=== PATIENT | male | born 1945 | race African-American/Black ===

== ENCOUNTER 2017-02-16 11:20 | Inpatient (IN) | payer MEDICARE ==
[~2017-02-16] VITALS: Ht 175.3 cm; Wt 79.3 kg
[~2017-02-16 11:20] MED LIST: AMLO5TAB2 PO; ATOR20TA9 PO; PANT40TA5 PO; TRAM-47 PO
[2017-02-16] MEDS ORDERED: ALBUTEROL/IPRATROPIUM 2.5MG/0.5MG, 3 ML ONE ×2 (12:19→14:57)
[2017-02-16] MEDS ORDERED: DIPHENHYDRAMINE 50 MG/ML, 1ML IVPush ONE ×2 (12:30)
[2017-02-16] MEDS ORDERED: ALBUTEROL/IPRATROPIUM 2.5MG/0.5MG, 3 ML NPPB ONE (12:30)
[2017-02-16] MEDS ORDERED: methylPREDNISolone SOD SUCC 125 MG/2 ML IVPush ONE (12:30)
[2017-02-16] MEDS ORDERED: FAMOTIDINE 20 MG/2 ML IVPush ONE (12:30)
[2017-02-16] MEDS ORDERED: SODIUM CHLORIDE FLUSH 10ML SYR IVF ONE (12:30)
[2017-02-16] MEDS ORDERED: methylPREDNISolone SOD SUCC 125 MG/2 ML ONE (12:35)
[2017-02-16] MEDS ORDERED: DIPHENHYDRAMINE 50 MG/ML, 1ML ONE (12:35)
[2017-02-16] MEDS ORDERED: FAMOTIDINE 20 MG/2 ML ONE (12:35)
[2017-02-16 12:51] LABS: HEMATOCRIT 52.9 % (39.2-51.8); HEMOGLOBIN 17.5 g/dL (13.7-18.0); WHITE BLOOD COUNT 6.7 x10^3/uL (3.4-10)
[2017-02-16 13:02] LABS: ASPARTATE AMINO TRANSFERASE 17 U/L (15-37); BLOOD UREA NITROGEN 16 mg/dL (7-18)
[2017-02-16 13:10] LABS: IS PT STATUS REG ER OR PRE ER? YES
[2017-02-16] MEDS ORDERED: PRED5TAB PO (14:14)
[2017-02-16] MEDS ORDERED: ALBU90AE INH (14:14)
[2017-02-16] MEDS ORDERED: FLUT1DIS3 INH (14:14)
[2017-02-16] MEDS ORDERED: LABETALOL 5MG/ML, 20ML IVPush PRN (15:00)
[2017-02-16] MEDS ORDERED: POLYETHYLENE GLYCOL 17 GM PACKET PO PRN (15:00)
[2017-02-16] MEDS ORDERED: ACETAMINOPHEN 325 MG TABLET PO PRN (15:00)
[2017-02-16] MEDS ORDERED: BISACODYL 10 MG SUPP PR PRN (15:00)
[2017-02-16] MEDS ORDERED: morphine SULFATE 10 MG/ML, 1ML IVPush PRN (15:00)
[2017-02-16] MEDS ORDERED: ONDANSETRON 2MG/ML, 2ML IVPush PRN (15:00)
[2017-02-16] MEDS ORDERED: DOCUSATE 100 MG CAPSULE PO PRN (15:00)
[2017-02-16] MEDS ORDERED: HYDROcodone/APAP 5/325 TABLET PO PRN (15:00)
[2017-02-16] MEDS ORDERED: ALBUTEROL SULFATE 2.5 MG/3 ML NPPB PRN (16:00)
[2017-02-16] MEDS: methylPREDNISolone SOD SUCC 125 MG/2 ML IVPush SCH (17:59)
[2017-02-16] MEDS: ALBUTEROL/IPRATROPIUM 2.5MG/0.5MG, 3 ML NPPB SCH (19:35)
[2017-02-16 20:17] LABS: IS PT STATUS REG ER OR PRE ER? NO
[2017-02-16] MEDS: DIPHENHYDRAMINE 50 MG/ML, 1ML IVPush SCH (20:47)
[2017-02-16] MEDS: HEPARIN 5,000 UNITS/ML, 1ML SQ SCH (20:47)
[2017-02-16] MEDS: FAMOTIDINE 20 MG/2 ML IVPush SCH (20:48)
[2017-02-16] MEDS: SODIUM CHLORIDE FLUSH 10ML SYR IVF SCH (20:48)
[2017-02-17] MEDS: methylPREDNISolone SOD SUCC 125 MG/2 ML IVPush SCH ×2 (00:14→05:43)
[2017-02-17 00:58] LABS: IS PT STATUS REG ER OR PRE ER? NO
[2017-02-17 04:00] VITALS: BP 112/71
[2017-02-17 04:46] LABS: HEMATOCRIT 48.2 % (39.2-51.8); HEMOGLOBIN 16.1 g/dL (13.7-18.0); WHITE BLOOD COUNT 6.8 x10^3/uL (3.4-10)
[2017-02-17 04:56] LABS: BLOOD UREA NITROGEN 16 mg/dL (7-18)
[2017-02-17] MEDS: HEPARIN 5,000 UNITS/ML, 1ML SQ SCH ×3 (05:43→21:23)
[2017-02-17] MEDS: DIPHENHYDRAMINE 50 MG/ML, 1ML IVPush SCH ×3 (05:43→21:23)
[2017-02-17] MEDS: ALBUTEROL/IPRATROPIUM 2.5MG/0.5MG, 3 ML NPPB SCH ×4 (06:42→19:47)
[2017-02-17] MEDS ORDERED: AMLODIPINE 5 MG TABLET PO SCH (09:00)
[2017-02-17] MEDS: FAMOTIDINE 20 MG/2 ML IVPush SCH ×2 (09:01→21:23)
[2017-02-17] MEDS: SODIUM CHLORIDE FLUSH 10ML SYR IVF SCH ×2 (09:02→20:20)
[2017-02-17] MEDS ORDERED: FLU VACC QS2017-18 (36MOS+) UP/PF 0.5 ML IM-VACC ONE (10:00)
[2017-02-17] MEDS: FLUTICASONE/VILANTEROL 100-25MCG/INH INH SCH (11:06)
[2017-02-17 12:22] VITALS: BP 152/82
[2017-02-17 19:22] VITALS: BP 146/80
[2017-02-17] MEDS: methylPREDNISolone SOD SUCC 40 MG/ML IVPush SCH (20:20)
[2017-02-18 02:22] VITALS: BP 148/88
[2017-02-18] MEDS: HEPARIN 5,000 UNITS/ML, 1ML SQ SCH (04:28)
[2017-02-18] MEDS: DIPHENHYDRAMINE 50 MG/ML, 1ML IVPush SCH (04:29)
[2017-02-18] MEDS: methylPREDNISolone SOD SUCC 40 MG/ML IVPush SCH ×2 (04:29→13:40)
[2017-02-18] MEDS: ALBUTEROL/IPRATROPIUM 2.5MG/0.5MG, 3 ML NPPB SCH ×3 (06:46→14:20)
[2017-02-18 06:53] VITALS: BP 122/80
[2017-02-18] MEDS: FLUTICASONE/VILANTEROL 100-25MCG/INH INH SCH (08:51)
[2017-02-18] MEDS: SODIUM CHLORIDE FLUSH 10ML SYR IVF SCH (08:51)
[2017-02-18] MEDS: FAMOTIDINE 20 MG/2 ML IVPush SCH (08:51)
[2017-02-18] MEDS ORDERED: CARV6.2512 PO (13:00)
[2017-02-18] MEDS ORDERED: PRED20TA PO (13:00)
[2017-02-18 13:20] VITALS: BP 153/83
== END 2017-02-18 15:02 | disposition home or self-care (01) | DRG 191 ==
LOC: ED 14:01 → EDIP 14:02 → ED 14:34 → CCU 15:32 → 3NW 02-17 12:15
PROVIDERS: ADMIT Hospitalist; ATTEND Hospitalist
DX: J44.1 Chronic obstructive pulmonary disease with (acute) exacerbation (principal); J45.901 Unspecified asthma with (acute) exacerbation; I13.10 Hypertensive heart and chronic kidney disease without heart failure, with stage 1 through stage 4 chronic kidney disease, or unspecified chronic kidney disease; T78.3XXA Angioneurotic edema, initial encounter; K21.9 Gastro-esophageal reflux disease without esophagitis; N18.9 Chronic kidney disease, unspecified; Z80.3 Family history of malignant neoplasm of breast; Z87.442 Personal history of urinary calculi; Z87.891 Personal history of nicotine dependence; Z88.0 Allergy status to penicillin; Z79.899 Other long term (current) drug therapy
CPT/HCPCS: 36415; 71010; 80048; 80053; 83880; 84484; 85025; 85610; 85730; 87081; 90686; 93005; 94640; 96374; 96375; J1644; J7620; J1200; J2920; J2930; S0028

== ENCOUNTER 2018-05-30 14:21 | Inpatient (IN) | payer MEDICARE ==
[~2018-05-30] VITALS: Ht 175.3 cm; Wt 80.4 kg
[~2018-05-30 14:21] MED LIST changes: +ALBU90AE INH; +AMLO-150 PO; -AMLO5TAB2 PO; +ATOR20TA37 PO; -ATOR20TA9 PO; +CARV6.2512 PO; +FLUT1DIS3 INH; +PRED20TA PO; +PRED5TAB PO
[2018-05-30 14:54] VITALS: BP 186/101
[2018-05-30] MEDS ORDERED: FLUT1BLS INH (15:13)
[2018-05-30] MEDS ORDERED: CARV6.252 PO (15:13)
[2018-05-30 15:39] LABS: BASOPHILS # (AUTO) 0.02 x10^3/uL (0-0.1); BASOPHILS % (AUTO) 0 % (0-1); EOSINOPHILS # (AUTO) 0.01 x10^3/uL (0-0.4); EOSINOPHILS % (AUTO) 0 % (1-7); LYMPHOCYTES # (AUTO) 0.69 x10^3/uL (1-3.4); LYMPHOCYTES % (AUTO) 6 % (22-44); MD NO; MEAN CORPUSCULAR HEMOGLOBIN 30.3 pg (27.5-34.5); MEAN CORPUSCULAR HGB CONC 33.9 g/dL (33.2-36.2); MEAN CORPUSCULAR VOLUME 89.3 fL (81-97); MEAN PLATELET VOLUME 8.3 fL (7.4-10.4); MONOCYTES # (AUTO) 0.27 x10^3/uL (0.2-0.8); MONOCYTES % (AUTO) 2 % (2-9); NEUTROPHILS # (AUTO) 9.88 x10^3/uL (1.8-6.8); NEUTROPHILS % (AUTO) 91 % (42-75); PLATELET COUNT 266 x10^3/uL (130-400); RED BLOOD COUNT 5.19 x10^6/uL (4.38-5.82); RED CELL DISTRIBUTION WIDTH 15.1 % (9.4-14.8)
[2018-05-30 15:50] LABS: ALBUMIN 3.2 g/dL (3.4-5.0); ANION GAP 5 mmol/L (5-15); CALCIUM 8.5 mg/dL (8.5-10.1); CHLORIDE 112 mmol/L (98-107)
[2018-05-30 15:53] LABS: ALANINE AMINOTRANSFERASE 25 U/L (12-78); ALKALINE PHOSPHATASE 78 U/L (45-117); BILIRUBIN,TOTAL 0.6 mg/dL (0.2-1.0); CREATININE 1.38 mg/dL (0.7-1.3); TOTAL PROTEIN 7.6 g/dL (6.4-8.2)
[2018-05-30 15:58] LABS: INTERNATIONAL NORMALIZED RATIO 1.09 (0.93-1.1); PROTHROMBIN TIME 11.4 Seconds (9.6-11.5)
[2018-06-01] MEDS ORDERED: CETI10CA PO (06:06)
[2018-06-01] MEDS ORDERED: DEXAMETHASONE PO (06:06)
[2018-06-01] MEDS: LACTATED RINGERS 1,000 ML IV SCH ×2 (06:27→13:20)
[2018-06-01] MEDS ORDERED: GADOBUTROL 7.5 MMOL/7.5 ML PFS ONE (06:48)
[2018-06-01] MEDS ORDERED: MIDAZOLAM 1 MG/ML, 2ML ONE (06:54)
[2018-06-01] MEDS ORDERED: BUPIVACAINE/PF-EPI 0.5% 1:200K ONE (06:58)
[2018-06-01] MEDS ORDERED: THROMBIN 5,000 UNIT VIAL TP ONE ×2 (06:58→08:43)
[2018-06-01] MEDS ORDERED: BACITRACIN 50,000 UNIT ONE (06:59)
[2018-06-01] MEDS ORDERED: FENTANYL PF 250 MCG/5ML ONE ×2 (07:00→08:09)
[2018-06-01] MEDS ORDERED: PROPOFOL 50 ML ONE (07:18)
[2018-06-01] MEDS ORDERED: LEVETIRACETAM 1,000 MG in SODIUM CHLORIDE 0.9% 100 ML IV ONE (07:30)
[2018-06-01] MEDS ORDERED: CEFUROXIME 1.5 GM ONE (07:31)
[2018-06-01] MEDS ORDERED: EPHEDRINE 50 MG/ML, 1ML ONE (07:31)
[2018-06-01] MEDS ORDERED: GLYCOPYRROLATE 0.2MG/1ML, 5ML ONE (07:31)
[2018-06-01] MEDS ORDERED: FENTANYL PF 100 MCG/2ML ONE ×2 (08:30→11:03)
[2018-06-01] MEDS ORDERED: BUPIVACAINE/PF-EPI 0.5% 1:200K INFIL ONE (08:43)
[2018-06-01] MEDS ORDERED: BACITRACIN 50,000 UNIT IRRIG ONE (08:43)
[2018-06-01] MEDS ORDERED: DEXAMETHASONE 4 MG/ML, 5ML ONE (10:19)
[2018-06-01] MEDS ORDERED: PROPOFOL 10 MG/ML, 20ML ONE ×2 (10:19)
[2018-06-01] MEDS ORDERED: ROCURONIUM 10MG/ML,5ML ONE (10:19)
[2018-06-01] MEDS ORDERED: ONDANSETRON 2MG/ML, 2ML ONE ×2 (10:19)
[2018-06-01] MEDS ORDERED: SUCCINYLCHOLINE 20 MG/ML, 10ML ONE (10:19)
[2018-06-01] MEDS ORDERED: LABETALOL 5 MG/ML SYRINGE IV ONE (11:00)
[2018-06-01] MEDS ORDERED: MORPHINE 30MG/30ML PCA.SYR IV PRN (12:00)
[2018-06-01] MEDS ORDERED: FENTANYL PF 100 MCG/2ML IV PRN (12:30)
[2018-06-01] MEDS ORDERED: LABETALOL 5MG/ML, 20ML IV PRN (12:30)
[2018-06-01] MEDS ORDERED: hydrALAzine 20 MG/ML, 1ML IV PRN (12:30)
[2018-06-01] MEDS ORDERED: HYDROcodone/APAP 5/325 TABLET PO PRN (14:00)
[2018-06-01] MEDS ORDERED: ONDANSETRON 2MG/ML, 2ML IV PRN (14:00)
[2018-06-01] MEDS ORDERED: DIPHENHYDRAMINE 50 MG/ML, 1ML IM PRN (14:00)
[2018-06-01] MEDS ORDERED: OXYcodone/APAP 5/325MG TABLET PO PRN (14:00)
[2018-06-01] MEDS ORDERED: ACETAMINOPHEN 650 MG SUPP PR PRN (14:00)
[2018-06-01] MEDS ORDERED: ACETAMINOPHEN 325 MG TABLET PO PRN (14:00)
[2018-06-01] MEDS: DEXAMETHASONE 4 MG/ML, 1ML IV SCH ×2 (14:43→20:04)
[2018-06-01] MEDS: NS + 20MEQ KCL 1,000 ML IV SCH (14:44)
[2018-06-01] MEDS: CEFAZOLIN PMX 1GM/50ML 50 ML IVPB SCH ×2 (16:42→23:56)
[2018-06-01] MEDS: LEVETIRACETAM 500 MG TABLET PO SCH (20:04)
[2018-06-01] MEDS ORDERED: PROAIR HOMEINH PRN (23:30)
[2018-06-02] MEDS: NS + 20MEQ KCL 1,000 ML IV SCH (02:46)
[2018-06-02] MEDS: DEXAMETHASONE 4 MG/ML, 1ML IV SCH ×4 (02:46→19:51)
[2018-06-02 04:57] LABS: MEAN CORPUSCULAR HEMOGLOBIN 30.2 pg (27.5-34.5); MEAN CORPUSCULAR HGB CONC 33.4 g/dL (33.2-36.2); MEAN CORPUSCULAR VOLUME 90.4 fL (81-97); MEAN PLATELET VOLUME 8.2 fL (7.4-10.4); PLATELET COUNT 226 x10^3/uL (130-400); RED CELL DISTRIBUTION WIDTH 15.2 % (9.4-14.8)
[2018-06-02 05:18] LABS: BASOPHILS % (AUTO) 0 % (0-1); EOSINOPHILS % (AUTO) 0 % (1-7); LYMPHOCYTES # (AUTO) 0.63 x10^3/uL (1-3.4); LYMPHOCYTES % (AUTO) 3 % (22-44); MD SCAN; MONOCYTES # (AUTO) 1.65 x10^3/uL (0.2-0.8); MONOCYTES % (AUTO) 7 % (2-9); NEUTROPHILS # (AUTO) 20.72 x10^3/uL (1.8-6.8); NEUTROPHILS % (AUTO) 90 % (42-75)
[2018-06-02 07:31] LABS: ANION GAP 7 mmol/L (5-15); CALCIUM 7.6 mg/dL (8.5-10.1); CHLORIDE 109 mmol/L (98-107); CREATININE 1.24 mg/dL (0.7-1.3)
[2018-06-02] MEDS: FLUTICASONE/VILANTEROL 200-25MCG/INH HOMEINH SCH (09:00)
[2018-06-02] MEDS: SENNA/DOCUSATE TABLET PO SCH (09:02)
[2018-06-02] MEDS: CETIRIZINE 10 MG TABLET PO SCH (09:03)
[2018-06-02] MEDS: LEVETIRACETAM 500 MG TABLET PO SCH ×2 (09:03→19:51)
[2018-06-02] MEDS: CARVEDILOL 6.25 MG TABLET PO SCH ×2 (09:05→17:34)
--- NOTE | 2018-06-02 11:16 | NUR ---
UTILITY TECH Recommend CHOPPED/ THINS -Avoid straws -UP for all meal at 90 degrees -Check for pocketing -Meds whole Please stop PO if any s/sx of difficulty. orange sheet posted Addendum: 06/02/18 at [address] Amended: Links added.
[2018-06-02 14:04] VITALS: BP 119/71
[2018-06-02 18:29] VITALS: BP 147/76
--- NOTE | 2018-06-02 21:28 | NUR ---
JUAN PABLO REDD - Fall Risk Medications present and NOT receiving anticoagulants. Signed: 06/02/18 at 2129 by Kirill HUGO
[2018-06-03 00:44] VITALS: BP 142/87
[2018-06-03 02:25] VITALS: BP 151/88
[2018-06-03] MEDS: DEXAMETHASONE 4 MG/ML, 1ML IV SCH ×4 (02:27→20:17)
[2018-06-03 05:10] LABS: MEAN CORPUSCULAR HGB CONC 33.2 g/dL (33.2-36.2); MEAN CORPUSCULAR VOLUME 90.3 fL (81-97); MEAN PLATELET VOLUME 8.3 fL (7.4-10.4); PLATELET COUNT 199 x10^3/uL (130-400); RED CELL DISTRIBUTION WIDTH 15.1 % (9.4-14.8)
[2018-06-03] MEDS: CARVEDILOL 6.25 MG TABLET PO SCH ×2 (05:39→17:49)
[2018-06-03 06:17] LABS: MD SCAN
[2018-06-03 07:13] LABS: BASOPHILS % (AUTO) 1 % (0-1); EOSINOPHILS # (AUTO) 0.01 x10^3/uL (0-0.4); EOSINOPHILS % (AUTO) 0 % (1-7); LYMPHOCYTES # (AUTO) 0.35 x10^3/uL (1-3.4); LYMPHOCYTES % (AUTO) 2 % (22-44); MONOCYTES # (AUTO) 0.35 x10^3/uL (0.2-0.8); MONOCYTES % (AUTO) 2 % (2-9); NEUTROPHILS # (AUTO) 17.61 x10^3/uL (1.8-6.8); NEUTROPHILS % (AUTO) 96 % (42-75)
[2018-06-03 07:44] VITALS: BP 138/79
[2018-06-03] MEDS ORDERED: LEVE10007 PO (07:54)
[2018-06-03] MEDS ORDERED: MAGNESIUM HYDROXIDE 8%, 30ML UDC PO PRN (08:00)
[2018-06-03] MEDS: LEVETIRACETAM 500 MG TABLET PO SCH ×2 (08:26→20:18)
[2018-06-03] MEDS: SENNA/DOCUSATE TABLET PO SCH (08:27)
[2018-06-03] MEDS: CETIRIZINE 10 MG TABLET PO SCH (08:27)
[2018-06-03] MEDS: FLUTICASONE/VILANTEROL 200-25MCG/INH HOMEINH SCH (08:30)
[2018-06-03] MEDS ORDERED: GADOBUTROL 7.5 MMOL/7.5 ML PFS ONE (10:26)
[2018-06-03 13:50] VITALS: BP 165/110
[2018-06-03 15:56] VITALS: BP 148/85
[2018-06-03 18:49] VITALS: BP 159/96
[2018-06-04 00:35] VITALS: BP 154/86
[2018-06-04] MEDS: DEXAMETHASONE 4 MG/ML, 1ML IV SCH ×4 (02:36→20:25)
[2018-06-04 05:22] LABS: BASOPHILS # (AUTO) 0.01 x10^3/uL (0-0.1); BASOPHILS % (AUTO) 0 % (0-1); EOSINOPHILS % (AUTO) 0 % (1-7); LYMPHOCYTES # (AUTO) 0.35 x10^3/uL (1-3.4); LYMPHOCYTES % (AUTO) 3 % (22-44); MD NO; MEAN CORPUSCULAR HEMOGLOBIN 30.5 pg (27.5-34.5); MEAN CORPUSCULAR HGB CONC 33.8 g/dL (33.2-36.2); MEAN CORPUSCULAR VOLUME 90.2 fL (81-97); MEAN PLATELET VOLUME 8.5 fL (7.4-10.4); MONOCYTES % (AUTO) 4 % (2-9); NEUTROPHILS # (AUTO) 13.01 x10^3/uL (1.8-6.8); NEUTROPHILS % (AUTO) 93 % (42-75); PLATELET COUNT 166 x10^3/uL (130-400); RED BLOOD COUNT 4.46 x10^6/uL (4.38-5.82); RED CELL DISTRIBUTION WIDTH 15.2 % (9.4-14.8)
[2018-06-04] MEDS: CARVEDILOL 6.25 MG TABLET PO SCH ×2 (05:23→18:30)
[2018-06-04] MEDS: LEVETIRACETAM 500 MG TABLET PO SCH ×2 (08:20→20:25)
[2018-06-04] MEDS: CETIRIZINE 10 MG TABLET PO SCH (08:20)
[2018-06-04] MEDS: SENNA/DOCUSATE TABLET PO SCH (08:20)
[2018-06-04] MEDS: FLUTICASONE/VILANTEROL 200-25MCG/INH HOMEINH SCH (08:21)
[2018-06-04 09:47] VITALS: BP 144/74
[2018-06-04] MEDS ORDERED: LABETALOL 5 MG/ML SYRINGE IVPush ONE (15:30)
[2018-06-04 18:53] VITALS: BP 169/91
[2018-06-04 23:31] VITALS: BP 150/80
[2018-06-05] MEDS: DEXAMETHASONE 4 MG/ML, 1ML IV SCH ×4 (02:41→19:34)
[2018-06-05 03:37] VITALS: BP 173/93
[2018-06-05] MEDS: CARVEDILOL 6.25 MG TABLET PO SCH ×2 (06:31→18:12)
[2018-06-05 07:18] VITALS: BP 165/93
[2018-06-05] MEDS: SENNA/DOCUSATE TABLET PO SCH (07:59)
[2018-06-05] MEDS: FLUTICASONE/VILANTEROL 200-25MCG/INH HOMEINH SCH (08:00)
[2018-06-05] MEDS: CETIRIZINE 10 MG TABLET PO SCH (08:00)
[2018-06-05] MEDS: LEVETIRACETAM 500 MG TABLET PO SCH ×2 (08:00→19:34)
[2018-06-05 11:40] VITALS: BP 162/93
[2018-06-05 14:46] VITALS: BP 150/94
[2018-06-05 19:30] VITALS: BP 176/97
[2018-06-05] MEDS: hydrALAzine 20 MG/ML, 1ML IV PRN (20:06)
[2018-06-06 00:09] VITALS: BP 185/97
[2018-06-06] MEDS: DEXAMETHASONE 4 MG/ML, 1ML IV SCH ×3 (02:43→13:37)
[2018-06-06 04:00] VITALS: BP 177/86
[2018-06-06] MEDS: CARVEDILOL 6.25 MG TABLET PO SCH (04:20)
[2018-06-06] MEDS: hydrALAzine 20 MG/ML, 1ML IV PRN ×2 (04:20→10:14)
[2018-06-06 07:08] VITALS: BP 195/90
[2018-06-06] MEDS: LEVETIRACETAM 500 MG TABLET PO SCH (07:56)
[2018-06-06] MEDS: SENNA/DOCUSATE TABLET PO SCH (07:56)
[2018-06-06] MEDS: CETIRIZINE 10 MG TABLET PO SCH (07:57)
[2018-06-06] MEDS: FLUTICASONE/VILANTEROL 200-25MCG/INH HOMEINH SCH (07:57)
[2018-06-06] MEDS ORDERED: DEXA4TAB66 PO (09:48)
[2018-06-06 09:52] VITALS: BP_SYST 157; BP_SYST 167; BP_DIAS 93
[2018-06-06 12:00] VITALS: BP 147/86
[2018-06-06 13:01] VITALS: BP_SYST 104; BP_SYST 158; BP_DIAS 68; BP_DIAS 90
== END 2018-06-06 15:00 | DRG 25 ==
LOC: UNDOADMIN 14:21 → ORIP 14:21 → EDSTATUS 06-01 07:30 → CCU 06-01 12:10 → 4NOR 06-02 10:25
PROVIDERS: ADMIT Neurological Surgery; ATTEND Neurological Surgery
PROC: 03HY32Z Insertion of Monitoring Device into Upper Artery, Percutaneous Approach (ICD-10-PCS; 2018-06-01)
PROC: 00K00ZZ Map Brain, Open Approach (ICD-10-PCS; 2018-06-01)
PROC: 00B Central Nervous System and Cranial Nerves, Excision (ICD-10-PCS; principal; 2018-06-01 07:30)
DX: C71.0 Malignant neoplasm of cerebrum, except lobes and ventricles (principal); G93.6 Cerebral edema; I12.9 Hypertensive chronic kidney disease with stage 1 through stage 4 chronic kidney disease, or unspecified chronic kidney disease; J44.9 Chronic obstructive pulmonary disease, unspecified; G47.30 Sleep apnea, unspecified; K21.9 Gastro-esophageal reflux disease without esophagitis; N18.9 Chronic kidney disease, unspecified; R29.810 Facial weakness; Z87.891 Personal history of nicotine dependence; Z91.018 Allergy to other foods; Z88.0 Allergy status to penicillin
CPT/HCPCS: 36415; 70450; 70553; 71046; 80048; 80053; 85025; 85610; 85730; 86850; 86900; 87081; 88307; 88331; 93005; 95938; 95941; A9585; C1713; G0378; J0690; J0697; J1100; J2250; J2270; J2405; J2704; J3010; J3480; J3490; A4648; C1781; J0330; J0360; J7050; J7120

== ENCOUNTER 2018-07-08 14:48 | Inpatient (IN) | payer MEDICARE ==
[2018-07-08] VITALS (10 sets, daily range): BP systolic 95–123; BP diastolic 53–83
[~2018-07-08] VITALS: Ht 175.3 cm; Wt 74.0 kg
[~2018-07-08 14:48] MED LIST changes: +ACID1TAB7 PO; +CARV12.52 PO; +CARV6.252 PO; +CETI10CA PO; +DEXA4TAB66 PO; +DEXAMETHASONE PO; +DOXY100T PO; +ERGO500017 PO; +FLUT1BLS INH; +GUAI5SYR PO; +LEVE10007 PO; +ONDA4TAB13 PO
--- NOTE | 2018-07-08 15:53 | NUR ---
PT PRESENTS W/ W/ CO DARK STOOL X TWO DAYS. [facility]ENT AD[facility] FOR [facility] OF PNU. HX OF BRAIN TUMOR AND STROKE WITH SIGNIFICANT L SIDED DEFICITS. PT/SO DENY CURRENT CHEMO TX OR BLOOD THINNERS. PT DENIES N/V/ABD PAIN. +WEAKNESS/MILD DIZZINESS. PT SITTING UP IN GURNEY, AWAKE/ALERT, SLOW TO RESPOND. MM APPEAR DRY; SKIN DRY. IV X TWO ESTABLISHED. LABS DRAWN. IVF HUNG PER ERP ORDER. BP/SPO2/ECG MONITORING IN PLACE. NSR ON MONITOR.
[2018-07-08] MEDS ORDERED: FAMOTIDINE 20 MG/2 ML ONE (15:58)
[2018-07-08] MEDS ORDERED: PANTOPRAZOLE 40 MG IV ONE (15:58)
[2018-07-08] MEDS ORDERED: SODIUM CHLORIDE FLUSH 10ML SYR IVF ONE (16:00)
[2018-07-08] MEDS ORDERED: PANTOPRAZOLE 40 MG IV IVPush ONE (16:00)
[2018-07-08] MEDS ORDERED: SODIUM CHLORIDE 0.9% 1,000ML IVBOLUS ONE (16:00)
[2018-07-08] MEDS ORDERED: FAMOTIDINE 20 MG/2 ML IVPush ONE (16:00)
[2018-07-08] MEDS ORDERED: CARV12.52 PO (16:09)
--- NOTE | 2018-07-08 16:10 | NUR ---
PT MEDICATED PER EMAR. REPORT TO SHARAD FAN
[2018-07-08 16:15] LABS: MEAN CORPUSCULAR HEMOGLOBIN 31.1 pg (27.5-34.5); MEAN CORPUSCULAR HGB CONC 32.9 g/dL (33.2-36.2); MEAN CORPUSCULAR VOLUME 94.4 fL (81-97); MEAN PLATELET VOLUME 7.8 fL (7.4-10.4); PLATELET COUNT 240 x10^3/uL (130-400); RED BLOOD COUNT 2.16 x10^6/uL (4.38-5.82); RED CELL DISTRIBUTION WIDTH 21.1 % (9.4-14.8)
[2018-07-08 16:16] LABS: ALANINE AMINOTRANSFERASE 33 U/L (12-78); ALBUMIN 2.4 g/dL (3.4-5.0); ANION GAP 8 mmol/L (5-15); CALCIUM 8.3 mg/dL (8.5-10.1); CHLORIDE 114 mmol/L (98-107)
--- NOTE | 2018-07-08 16:18 | NUR ---
RECEIVED BEDSIDE REPORT FROM SHARAD MORA. ALL QUESTIONS ANSWERED. CLEAN LINENS PLACED UNDER PT. NO ACUTE DISTRESS NOTED. NO NEEDS REQUESTED AT THIS TIME.
[2018-07-08 16:19] LABS: ALKALINE PHOSPHATASE 90 U/L (45-117); BILIRUBIN,TOTAL 0.6 mg/dL (0.2-1.0); TOTAL PROTEIN 6.1 g/dL (6.4-8.2)
[2018-07-08 16:25] LABS: INTERNATIONAL NORMALIZED RATIO 1.2 (0.93-1.1); PROTHROMBIN TIME 12.5 Seconds (9.6-11.5)
[2018-07-08 16:59] LABS: MD YES
[2018-07-08 17:04] LABS: BAND#(MANUAL) 0.12 x10^3/uL; BANDS%(MANUAL) 1 % (0-7); LYMPH#(MANUAL) 1.28 x10^3/uL (1-3.4); LYMPHS% (MANUAL) 11 % (22-44); MONOS#(MANUAL) 0.23 x10^3/uL (0.3-2.7); MONOS% (MANUAL) 2 % (2-9); NRBC % (MANUAL) 1 % (0-1); SEG#(MANUAL) 9.98 x10^3/uL (1.8-6.8); SEGS% (MANUAL) 86 % (42-75)
[2018-07-08 17:05] LABS: <PLATELET ESTIMATE> ADEQUATE; <PLT MORPHOLOGY> NORMAL PLT MORPH; ANISOCYTOSIS 1+; POLYCHROMASIA 1+
--- NOTE | 2018-07-08 17:59 | NUR ---
REPORT TO SHARAD EDDY. ALL QUESTIONS ANSWERED.
--- NOTE | 2018-07-08 18:11 | NUR ---
LATE ENTRY FOR 1700 PT RESTING ON GURNEY. NO ACUTE DISTRESS NOTED. NO NEEDS REQUESTED AT THIS TIME. PT GIVEN PILLOW.
--- NOTE | 2018-07-08 18:12 | NUR ---
PT TOLERATING TRANSFUSION WITH NO COMPLICATIONS. PT STATES "I FEEL FINE." NO ACUTE DISTRESS NOTED. NO NEEDS REQUESTED AT THIS TIME.
--- NOTE | 2018-07-08 18:59 | NUR ---
pt being transferred to floor. pt left with all personal belongings.
[2018-07-08] MEDS ORDERED: ONDANSETRON 2MG/ML, 2ML IVPush PRN (19:00)
[2018-07-08] MEDS ORDERED: ACETAMINOPHEN 325 MG TABLET PO PRN (19:00)
[2018-07-08] MEDS ORDERED: BISACODYL 10 MG SUPP PR PRN (19:00)
[2018-07-08] MEDS: ALBUTEROL SULFATE 2.5 MG/3 ML NPPB SCH (19:30)
[2018-07-08] MEDS: BUDESONIDE 0.5 MG/2 ML INHA NPPB SCH (21:00)
[2018-07-08] MEDS: LEVETIRACETAM 1,000 MG in SODIUM CHLORIDE 0.9% 100 ML IV SCH (22:32)
[2018-07-08] MEDS: PANTOPRAZOLE 80 MG in SODIUM CHLORIDE 0.9% 100 ML IV SCH (22:32)
[2018-07-08] MEDS: SODIUM CHLORIDE 0.45% 1,000 ML IV SCH (23:06)
[2018-07-09 00:46] VITALS: BP 115/73
[2018-07-09] MEDS: ALBUTEROL SULFATE 2.5 MG/3 ML NPPB SCH ×4 (01:00→20:15)
[2018-07-09 04:51] LABS: BASOPHILS # (AUTO) 0.03 x10^3/uL (0-0.1); BASOPHILS % (AUTO) 0 % (0-1); EOSINOPHILS # (AUTO) 0.01 x10^3/uL (0-0.4); EOSINOPHILS % (AUTO) 0 % (1-7); LYMPHOCYTES # (AUTO) 1.48 x10^3/uL (1-3.4); LYMPHOCYTES % (AUTO) 14 % (22-44); MD NO; MEAN CORPUSCULAR HGB CONC 32.7 g/dL (33.2-36.2); MEAN CORPUSCULAR VOLUME 91.8 fL (81-97); MEAN PLATELET VOLUME 7.9 fL (7.4-10.4); MONOCYTES # (AUTO) 0.93 x10^3/uL (0.2-0.8); MONOCYTES % (AUTO) 9 % (2-9); NEUTROPHILS # (AUTO) 8.28 x10^3/uL (1.8-6.8); NEUTROPHILS % (AUTO) 77 % (42-75); PLATELET COUNT 173 x10^3/uL (130-400); RED BLOOD COUNT 2.54 x10^6/uL (4.38-5.82)
[2018-07-09 04:52] LABS: ALBUMIN 2.1 g/dL (3.4-5.0); ANION GAP 8 mmol/L (5-15); CALCIUM 7.6 mg/dL (8.5-10.1); CHLORIDE 117 mmol/L (98-107)
[2018-07-09 04:56] LABS: ALANINE AMINOTRANSFERASE 27 U/L (12-78); ALKALINE PHOSPHATASE 66 U/L (45-117); BILIRUBIN,TOTAL 1.3 mg/dL (0.2-1.0); CREATININE 1.64 mg/dL (0.7-1.3); TOTAL PROTEIN 5.3 g/dL (6.4-8.2)
[2018-07-09 07:20] VITALS: BP 116/68
[2018-07-09] MEDS: SODIUM CHLORIDE 0.45% 1,000 ML IV SCH ×2 (08:00→17:47)
[2018-07-09] MEDS ORDERED: POTASSIUM CHLORIDE 40 MEQ in SODIUM CHLORIDE 0.9% 500 ML IV ONE (08:00)
[2018-07-09] MEDS: BUDESONIDE 0.5 MG/2 ML INHA NPPB SCH ×2 (08:25→20:15)
[2018-07-09] MEDS ORDERED: FLUTICASONE/VILANTEROL 200-25MCG/INH INH SCH (09:00)
[2018-07-09] MEDS: CARVEDILOL 12.5 MG TABLET PO SCH (09:14)
[2018-07-09] MEDS ORDERED: FENTANYL PF 100 MCG/2ML ONE (09:44)
[2018-07-09] MEDS ORDERED: MIDAZOLAM 1 MG/ML, 5ML ONE (09:44)
[2018-07-09] MEDS: LEVETIRACETAM 1,000 MG in SODIUM CHLORIDE 0.9% 100 ML IV SCH ×2 (09:58→23:08)
[2018-07-09] MEDS: PANTOPRAZOLE 80 MG in SODIUM CHLORIDE 0.9% 100 ML IV SCH (10:18)
[2018-07-09] MEDS ORDERED: EPINEPHRINE SYRINGE 0.1 MG/ML, 10ML ONE (12:21)
[2018-07-09 13:29] VITALS: BP 119/64
[2018-07-09 20:13] VITALS: BP 129/74
[2018-07-09] MEDS: PANTOPROZOLE 40MG TABLET PO SCH (21:24)
[2018-07-10 01:08] VITALS: BP 132/75
[2018-07-10] MEDS: ALBUTEROL SULFATE 2.5 MG/3 ML NPPB SCH ×3 (01:30→15:00)
[2018-07-10 04:47] LABS: BASOPHILS # (AUTO) 0.01 x10^3/uL (0-0.1); BASOPHILS % (AUTO) 0 % (0-1); EOSINOPHILS # (AUTO) 0.12 x10^3/uL (0-0.4); EOSINOPHILS % (AUTO) 1 % (1-7); LYMPHOCYTES # (AUTO) 1.15 x10^3/uL (1-3.4); LYMPHOCYTES % (AUTO) 13 % (22-44); MD NO; MEAN CORPUSCULAR HGB CONC 33.8 g/dL (33.2-36.2); MEAN CORPUSCULAR VOLUME 91.8 fL (81-97); MEAN PLATELET VOLUME 7.9 fL (7.4-10.4); MONOCYTES # (AUTO) 0.65 x10^3/uL (0.2-0.8); MONOCYTES % (AUTO) 7 % (2-9); NEUTROPHILS # (AUTO) 7.04 x10^3/uL (1.8-6.8); NEUTROPHILS % (AUTO) 79 % (42-75); PLATELET COUNT 170 x10^3/uL (130-400); RED BLOOD COUNT 2.54 x10^6/uL (4.38-5.82); RED CELL DISTRIBUTION WIDTH 19.5 % (9.4-14.8)
[2018-07-10 04:57] LABS: ANION GAP 9 mmol/L (5-15); CALCIUM 7.6 mg/dL (8.5-10.1); CHLORIDE 118 mmol/L (98-107)
[2018-07-10 04:59] LABS: CREATININE 1.42 mg/dL (0.7-1.3)
[2018-07-10] MEDS: SODIUM CHLORIDE 0.45% 1,000 ML IV SCH ×2 (05:08→14:00)
[2018-07-10 07:05] VITALS: BP 153/81
[2018-07-10] MEDS: BUDESONIDE 0.5 MG/2 ML INHA NPPB SCH (07:30)
[2018-07-10] MEDS: PANTOPROZOLE 40MG TABLET PO SCH (08:58)
[2018-07-10] MEDS: CARVEDILOL 12.5 MG TABLET PO SCH (08:58)
[2018-07-10] MEDS: LEVETIRACETAM 1,000 MG in SODIUM CHLORIDE 0.9% 100 ML IV SCH (10:36)
--- NOTE | 2018-07-10 12:06 | NUR ---
REC CHOPPED/THIN; swallow precautions sheet at bedside; close supervision and oral care after all meals Addendum: 07/10/18 at 1206 by Narda HOLDER Amended: Links added.
[2018-07-10 12:23] VITALS: BP 131/71
[2018-07-10] MEDS ORDERED: PANT40TA5 PO (14:34)
[2018-07-10] MEDS ORDERED: DOCU-131 PO (14:34)
== END 2018-07-10 18:31 | disposition home or self-care (01) | DRG 377 ==
LOC: ED 15:23 → EDIP 16:59 → 3NW 19:03
PROVIDERS: ADMIT Internal Medicine; ATTEND Internal Medicine
PROC: 30233N1 Transfusion of Nonautologous Red Blood Cells into Peripheral Vein, Percutaneous Approach (ICD-10-PCS; 2018-07-08)
PROC: 3E0G8GC Introduction of Other Therapeutic Substance into Upper GI, Via Natural or Artificial Opening Endoscopic (ICD-10-PCS; 2018-07-09)
PROC: 0DB68ZX Excision of Stomach, Via Natural or Artificial Opening Endoscopic, Diagnostic (ICD-10-PCS; principal; 2018-07-09 10:30)
DX: K25.4 Chronic or unspecified gastric ulcer with hemorrhage (principal); E43 Unspecified severe protein-calorie malnutrition; D62 Acute posthemorrhagic anemia; C71.9 Malignant neoplasm of brain, unspecified; D68.9 Coagulation defect, unspecified; E87.0 Hyperosmolality and hypernatremia; K29.81 Duodenitis with bleeding; K26.4 Chronic or unspecified duodenal ulcer with hemorrhage; D89.9 Disorder involving the immune mechanism, unspecified; K21.0 Gastro-esophageal reflux disease with esophagitis; I12.9 Hypertensive chronic kidney disease with stage 1 through stage 4 chronic kidney disease, or unspecified chronic kidney disease; J44.9 Chronic obstructive pulmonary disease, unspecified; K44.9 Diaphragmatic hernia without obstruction or gangrene; K76.0 Fatty (change of) liver, not elsewhere classified; K80.20 Calculus of gallbladder without cholecystitis without obstruction; N18.2 Chronic kidney disease, stage 2 (mild); N40.0 Benign prostatic hyperplasia without lower urinary tract symptoms; H91.90 Unspecified hearing loss, unspecified ear; Z79.52 Long term (current) use of systemic steroids; Z80.3 Family history of malignant neoplasm of breast; Z83.2 Family history of diseases of the blood and blood-forming organs and certain disorders involving the immune mechanism; Z85.841 Personal history of malignant neoplasm of brain; Z87.442 Personal history of urinary calculi; Z87.891 Personal history of nicotine dependence; Z90.49 Acquired absence of other specified parts of digestive tract; Z68.24 Body mass index [BMI] 24.0-24.9, adult
CPT/HCPCS: 36415; 36430; 80048; 80053; 82728; 83540; 83550; 83605; 83735; 84466; 85014; 85018; 85025; 85610; 85730; 86850; 86900; 86923; 88305; 94640; 96360; G0378; J1953; J2250; J3010; J3480; J7613; J7626; C9113; J3490; J7030; J7040; P9016